=== PATIENT | female | born 1975 | race Two or more races ===

== ENCOUNTER 2021-05-21 01:24 | Emergency (ER) | payer OTHER ==
[2021-05-21] MEDS ORDERED: PHENAZOPYRIDINE HCL 100 MG TABLET (FP) PO ONE (01:37)
[2021-05-21] MEDS ORDERED: PHENAZOPYRIDINE HCL 100 MG TABLET (FP) ONE (01:40)
[2021-05-21] MEDS ORDERED: ACETAMINOPHEN 1000 MG/100 ML VIAL (NON FORMULARY) IVPB ONE (01:44)
[2021-05-21] MEDS ORDERED: ONDANSETRON 4 MG/2 ML VIAL IVPUSH ONE (01:44)
[2021-05-21] MEDS ORDERED: SODIUM CHLORIDE 0.9% 500 ML INFUS.BAG IV ONE (01:44)
[2021-05-21] MEDS ORDERED: ACETAMINOPHEN INJECTION 100 ML IVPB ONE (01:52)
[2021-05-21] MEDS ORDERED: ONDANSETRON 4 MG/2 ML VIAL ONE (01:52)
[2021-05-21 02:04] LABS: EPI CELLS 12 /uL (0-25.1); HYALINE CASTS 4 /uL (0-3.1); URINE APPEARANCE CLEAR; URINE BACTERIA 8376 /uL (0-1359); URINE BILIRUBIN NEGATIVE (NEGATIVE); URINE COLOR YELLOW; URINE GLUCOSE (UA) NEGATIVE (NEGATIVE); URINE KETONE NEGATIVE (NEGATIVE); URINE LEUK ESTERASE 3+ (NEGATIVE); URINE NITRITE POSITIVE (NEGATIVE); URINE PROTEIN 1+ (NEGATIVE); URINE RBC 383 /uL (0-23.9); URINE UROBILINOGEN 0.2 mg/dL (0.2-1.0); URINE WBC 617 /uL (0-25.8)
[2021-05-21 02:31] VITALS: BP 131/88; PULSE 86; TEMP 98.2; BMI 25.0
[2021-05-21] MEDS ORDERED: valACYclovir HCL 1000 MG TABLET PO ONE (02:34)
[2021-05-21] MEDS ORDERED: CEFTRIAXONE 1,000 MG in DEXTROSE 5%-WATER - 50 ML IVPB ONE (02:37)
[2021-05-21] MEDS ORDERED: valACYclovir HCL 500 MG TABLET (FP) ONE (02:47)
[2021-05-21] MEDS ORDERED: cefTRIAXone SODIUM 1 GM VIAL ONE (02:48)
[2021-05-21 03:08] LABS: BASO % 0.7 % (0-2.0); HEMATOCRIT 39.4 % (32.4-45.2); HEMOGLOBIN 13.2 GM/dL (10.7-15.3); LYMPH % 31.7 % (8-40); MCH 27.4 pg (25.7-33.7); MCHC 33.4 g/dl (32.0-36.0); MEAN PLT VOLUME 7.3 fl (7.5-11.1); MONO % 5.3 % (3.8-10.2); NEUT % 59.3 % (42.8-82.8); PLATELET COUNT 394 10^3/uL (134-434); RBC 4.81 M/mm3 (3.60-5.2); RDW 14.2 % (11.6-15.6)
[2021-05-21 03:28] LABS: CALCIUM 8.9 mg/dL (8.5-10.1)
[2021-05-21 03:29] LABS: ALBUMIN 3.3 g/dl (3.4-5.0); BLOOD UREA NITROGEN 16.4 mg/dL (7-18)
[2021-05-21 03:32] LABS: CREATININE 0.8 mg/dL (0.55-1.3)
[2021-05-21 03:33] LABS: BILIRUBIN,TOTAL 0.4 mg/dL (0.2-1); TOT PROT 7.4 g/dl (6.4-8.2)
== END 2021-05-21 03:54 | disposition home or self-care (01) ==
LOC: FER 01:24
PROC: 3E03329 Introduction of Other Anti-infective into Peripheral Vein, Percutaneous Approach (ICD-10-PCS; principal; 2021-05-21)
PROC: 3E033NZ Introduction of Analgesics, Hypnotics, Sedatives into Peripheral Vein, Percutaneous Approach (ICD-10-PCS; 2021-05-21)
DX: N10 Acute pyelonephritis (principal); B00.2 Herpesviral gingivostomatitis and pharyngotonsillitis; E86.0 Dehydration; R11.0 Nausea
CPT/HCPCS: 36415; 74176-TC; 80053; 81003; 85025; 87086; 87186; 99285-25; J0131

== ENCOUNTER 2023-12-07 09:06 | Emergency (ER) | payer OTHER ==
[2023-12-07 09:24] VITALS: BP 109/78; PULSE 85; RESP 20; TEMP 98.5; BMI 22.9
[2023-12-07] MEDS: DIPHTH,PERTUSS(ACELL),TET 0.5 ML DISP.SYRIN IM ONE (10:01)
[2023-12-07] MEDS ORDERED: DIPHTH,PERTUSS(ACELL),TET 0.5 ML DISP.SYRIN IM ONE (10:02)
== END 2023-12-07 10:11 | disposition home or self-care (01) ==
LOC: FER 09:06
PROC: 0XQPXZZ Repair Left Index Finger, External Approach (ICD-10-PCS; principal; 2023-12-07)
PROC: 3E0234Z Introduction of Serum, Toxoid and Vaccine into Muscle, Percutaneous Approach (ICD-10-PCS; 2023-12-07)
DX: S61.210A Laceration without foreign body of right index finger without damage to nail, initial encounter (principal); W26.0XXA Contact with knife, initial encounter
CPT/HCPCS: 90715; 99284-25

== ENCOUNTER 2023-12-14 12:22 | Emergency (ER) | payer OTHER ==
[2023-12-14 12:51] VITALS: BP 119/80; PULSE 109; RESP 18; TEMP 100.5; BMI 27.8
[2023-12-14] MEDS ORDERED: ACETAMINOPHEN 325 MG TABLET (FP) PO ONE (13:16)
[2023-12-14] MEDS ORDERED: ACETAMINOPHEN 325 MG TABLET (FP) ONE (13:31)
[2023-12-14] MEDS ORDERED: IBUPROFEN 400 MG TABLET (FP) PO ONE (13:59)
[2023-12-14] MEDS: IBUPROFEN 400 MG TABLET (FP) PO ONE (14:14)
[2023-12-14] MEDS ORDERED: SULFAMETHOXAZOLE/TRIMETHOPRIM 800MG/160MG D.S. TABLET PO ONE (15:01)
[2023-12-14] MEDS ORDERED: SULFAMETHOXAZOLE/TRIMETHOPRIM 800MG/160MG D.S. TABLET ONE (15:17)
== END 2023-12-14 15:38 | disposition home or self-care (01) ==
LOC: FER 12:22
DX: N12 Tubulo-interstitial nephritis, not specified as acute or chronic (principal); R50.9 Fever, unspecified; M79.10 Myalgia, unspecified site; R63.0 Anorexia; R00.0 Tachycardia, unspecified; Z20.822 Contact with and (suspected) exposure to COVID-19
CPT/HCPCS: 0241U-QW; 81003; 81015; 87086; 87186; 99283-25

== ENCOUNTER 2024-04-24 11:06 | Emergency (ER) | payer OTHER ==
[2024-04-24 11:19] VITALS: BP 109/83; PULSE 86; RESP 20; TEMP 97.5; BMI 27.4
[2024-04-24] MEDS ORDERED: METOCLOPRAMIDE HCL INJECTION 10 MG/2 ML VIAL IVPUSH ONE (11:38)
[2024-04-24] MEDS ORDERED: MAG HYDROX/AL HYDROX/SIMETH 30 ML UNIT-DOSE CUP ONE (12:32)
[2024-04-24] MEDS ORDERED: FAMOTIDINE 20 MG/50 ML IVPB 20 MG/50 ML MG IVPB ONE (12:32)
[2024-04-24] MEDS ORDERED: ONDANSETRON 4 MG/2 ML VIAL ONE (12:32)
[2024-04-24] MEDS ORDERED: ACETAMINOPHEN INJECTION 100 ML ONE (12:32)
[2024-04-24] MEDS: ACETAMINOPHEN 1000 MG/100 ML BAG IVPB ONE (12:46)
[2024-04-24] MEDS: SODIUM CHLORIDE 0.9% 500 ML INFUS.BAG IV ONE (12:46)
[2024-04-24] MEDS: ONDANSETRON 4 MG/2 ML VIAL IVPB ONE (12:47)
[2024-04-24] MEDS: FAMOTIDINE 20 MG/50 ML IVPB 20 MG/50 ML MG IVPB ONE (12:47)
[2024-04-24] MEDS: MAG HYDROX/AL HYDROX/SIMETH -MYLANTA- ORAL SUSPENSION PO ONE (12:47)
[2024-04-24 13:04] LABS: HEMATOCRIT 45.7 % (32.4-45.2); MCH 27.6 pg (25.7-33.7); MCHC 32.7 g/dl (32.0-36.0); MEAN CELL VOLUME 84.4 fl (80-96); MEAN PLT VOLUME 7.4 fl (7.5-11.1); PLATELET COUNT 310.3 10^3/uL (134-434); RBC 5.41 10^6/uL (3.60-5.2); RDW 14.4 % (11.6-15.6); WHITE BLOOD COUNT 11.5 10^3/uL (4.0-10.8)
[2024-04-24 13:12] LABS: ALBUMIN 4.2 g/dl (3.4-5.0); BILIRUBIN,TOTAL 0.7 mg/dl (0.2-1); CALCIUM 9.1 mg/dl (8.5-10.1); CREATININE 0.6 mg/dl (0.6-1.3); PLATELET ESTIMATE ADEQUATE; POTASSIUM 4.4 mmol/L (3.5-5.1); TOT PROT 7.1 g/dl (6.4-8.2)
== END 2024-04-24 14:45 | disposition home or self-care (01) ==
LOC: FER 11:06
PROC: 3E033GC Introduction of Other Therapeutic Substance into Peripheral Vein, Percutaneous Approach (ICD-10-PCS; principal; 2024-04-24)
PROC: 3E033NZ Introduction of Analgesics, Hypnotics, Sedatives into Peripheral Vein, Percutaneous Approach (ICD-10-PCS; 2024-04-24)
PROC: 3E033GC Introduction of Other Therapeutic Substance into Peripheral Vein, Percutaneous Approach (ICD-10-PCS; 2024-04-24)
DX: R11.2 Nausea with vomiting, unspecified (principal); R10.13 Epigastric pain; R19.7 Diarrhea, unspecified
CPT/HCPCS: 36415; 80053; 83690; 84484; 85027; 93005; 99284-25; J0131